=== PATIENT | female | born 1965 | race Asian ===

== ENCOUNTER 2019-02-23 15:56 | Emergency (ER) | payer SELFPAY ==
[~2019-02-23] VITALS: Ht 160 cm; Wt 59.0 kg
[2019-02-23 16:08] VITALS: BP 119/66
== END 2019-02-23 17:29 | disposition left against medical advice (07) ==
LOC: ER 16:01
DX: S09.93XA Unspecified injury of face, initial encounter (principal); W01.0XXA Fall on same level from slipping, tripping and stumbling without subsequent striking against object, initial encounter; Y93.89 Activity, other specified; Y99.8 Other external cause status; Y92.89 Other specified places as the place of occurrence of the external cause